=== PATIENT | male | born 1970 | race Caucasian/White ===

== ENCOUNTER → 2016-05-04 | Outpatient (CLI) | payer OTHER ==
[2016-05-04 09:19] LABS: Basophils % (A) 1 %; CH 33.6; CHCM 35.5; Eosinophils # (A) 0.1 k/uL (0-0.7); Eosinophils % (A) 3 %; HCT 44.2 % (39.0-53.0); HDW 2.74; HGB 15.1 gm/dL (13.0-17.5); Luc # (Auto) 0.12; Luc % (Auto) 3; Lymphocytes # (A) 0.8 k/uL (1.0-4.8); Lymphocytes % (A) 21 %; MCH 32.5 pg (25.0-35.0); MCHC 34.2 g/dL (31.0-37.0); Mean Platelet Volume 7.4; Monocytes # (A) 0.4 k/uL (0-1.0); Monocytes % (A) 10 %; Neutrophils # (A) 2.5 k/uL (1.3-7.7); Neutrophils % (A) 62 %; RBC 4.65 m/uL (4.30-5.90); RDW 12.6 % (11.5-15.5); WBC (Perox) 4.32
[2016-05-04 09:24] LABS: ALT 34 U/L (21-72); AST 24 U/L (17-59); Alkaline Phosphatase 62 U/L (38-126); Anion Gap 8 mmol/L; Blood Urea Nitrogen 13 mg/dL (9-20); Calcium 9.2 mg/dL (8.4-10.2); Carbon Dioxide 28 mmol/L (22-30); Chloride 108 mmol/L (98-107); Glucose 100 mg/dL (74-99); Non-African American GFR(MDRD) >60 (>60 ml/min/1.73 sqM); Sodium 144 mmol/L (137-145); Total Bilirubin 0.8 mg/dL (0.2-1.3)
[2016-05-17 16:30] LABS: Mis test requested (Blood) Infliximab Act/NeutA
== END | disposition home or self-care (01) ==
LOC: LABWHC1 08:37
PROVIDERS: ATTEND Internal Medicine
DX: K50.10 Crohn's disease of large intestine without complications (principal); Z51.81 Encounter for therapeutic drug level monitoring
CPT/HCPCS: 36415; 80053; 85025; 86352

== ENCOUNTER → 2016-12-06 | Outpatient (CLI) | payer OTHER ==
--- NOTE | 2016-12-06 15:42 | US ---
EXAMINATION TYPE: US kidneys/renal and bladder DATE OF EXAM: 12/06/2016 COMPARISON: NONE CLINICAL HISTORY: 46-year-old male N13.30 HYDRONEPHROSIS. Stone left ureter, follow up hydronephrosis . TECHNIQUE: Multiple sonographic images of the kidneys and bladder are obtained. FINDINGS: Right Kidney: 11.8 x 5.2 x 5.7 cm without hydronephrosis. There is a 9 mm echogenic focus in the mid pole suggestive of a nonobstructive calculus. Left Kidney: 12.6 x 7.0 x 7.3 cm with moderate hydronephrosis. There is a shadowing 1.2 cm echogenic focus in the lower pole. No gross abnormality of the urine distended bladder. Both ureteral jets are visualized. IMPRESSION: 1. Moderate left-sided hydronephrosis. There is a 1.2 cm calculus at the lower pole. The presence of a left ureteric jet argues against complete ureteral obstruction. 2. Additional 9 mm right midpole renal calculus.
== END ==
LOC: RADUSWWP 15:07
PROVIDERS: ATTEND Family Medicine
DX: N13.2 Hydronephrosis with renal and ureteral calculous obstruction (principal)
CPT/HCPCS: 76770

== ENCOUNTER → 2017-08-19 | Outpatient (CLI) | payer OTHER | END | disposition home or self-care (01) | LOC: LABWHC1 11:33 | PROVIDERS: ATTEND Internal Medicine | DX: K50.10 Crohn's disease of large intestine without complications (principal); Z51.81 Encounter for therapeutic drug level monitoring | CPT/HCPCS: 36415 ==

== ENCOUNTER → 2018-07-18 | Outpatient (CLI) | payer OTHER | LOC: LABWHC1 08:24 | PROVIDERS: ATTEND Internal Medicine | DX: Z51.81 Encounter for therapeutic drug level monitoring (principal); K50.80 Crohn's disease of both small and large intestine without complications | CPT/HCPCS: 36415; 83993 ==

== ENCOUNTER → 2018-11-28 | Outpatient (CLI) | payer BC | END | disposition home or self-care (01) | LOC: LABWHC1 10:14 | PROVIDERS: ATTEND Internal Medicine | DX: K50.80 Crohn's disease of both small and large intestine without complications (principal) | CPT/HCPCS: 36415; 80299 ==

== ENCOUNTER → 2019-05-30 | Outpatient (CLI) | payer BC, OTHER | END | disposition home or self-care (01) | LOC: LABWHC1 09:20 | PROVIDERS: ATTEND Physician Assistant | DX: K50.80 Crohn's disease of both small and large intestine without complications (principal) | CPT/HCPCS: 36415 ==

== ENCOUNTER → 2019-10-30 | Outpatient (CLI) | payer BC ==
[2019-10-30 15:24] LABS: Basophils # (A) 0.1 k/uL (0-0.2); Basophils % (A) 1 %; Eosinophils # (A) 0.2 k/uL (0-0.7); Eosinophils % (A) 3 %; HCT 46.7 % (39.0-53.0); HGB 15.5 gm/dL (13.0-17.5); Lymphocytes # (A) 1.4 k/uL (1.0-4.8); Lymphocytes % (A) 20 %; MCHC 33.1 g/dL (31.0-37.0); MCV 99.5 fL (80.0-100.0); Mean Platelet Volume 7.5; Monocytes # (A) 0.6 k/uL (0-1.0); Monocytes % (A) 9 %; Neutrophils # (A) 4.6 k/uL (1.3-7.7); Neutrophils % (A) 65 %; Platelet Count 186 k/uL (150-450); RBC 4.69 m/uL (4.30-5.90); RDW 13.3 % (11.5-15.5)
[2019-10-30 19:25] LABS: African American GFR (CKD) 90.9 (60.0-200.0); Albumin 4.4 g/dL (3.80-4.90); Albumin/Globulin Ratio 1.69 (1.60-3.17); Anion Gap 7.7 mmol/L (4.00-12.00); BUN/Creat Ratio 14.55 Ratio (12.00-20.00); Calcium 9.4 mg/dL (8.7-10.3); Carbon Dioxide 24.3 mmol/L (21.6-31.8); Globulin 2.6 g/dL (1.6-3.3); Non-African American GFR(CKD) 78.4 (60.0-200.0); Potassium 3.9 mmol/L (3.5-5.5); Total Bilirubin 0.5 mg/dL (0.2-1.2)
== END | disposition home or self-care (01) ==
LOC: LABWHC1 14:12
PROVIDERS: ATTEND Internal Medicine
DX: E55.9 Vitamin D deficiency, unspecified (principal); K50.90 Crohn's disease, unspecified, without complications; Z51.81 Encounter for therapeutic drug level monitoring
CPT/HCPCS: 36415; 80053; 85025

== ENCOUNTER → 2019-12-29 | Outpatient (CLI) | payer BC ==
[2019-12-29 15:43] LABS: Basophils % (A) 1 %; Eosinophils # (A) 0.2 k/uL (0-0.7); Eosinophils % (A) 4 %; HCT 45.4 % (39.0-53.0); HGB 14.9 gm/dL (13.0-17.5); Lymphocytes # (A) 1.3 k/uL (1.0-4.8); Lymphocytes % (A) 24 %; MCH 32.5 pg (25.0-35.0); MCHC 32.9 g/dL (31.0-37.0); Mean Platelet Volume 7.4; Monocytes # (A) 0.5 k/uL (0-1.0); Monocytes % (A) 10 %; Neutrophils # (A) 3.2 k/uL (1.3-7.7); Neutrophils % (A) 59 %; Platelet Count 178 k/uL (150-450); RBC 4.59 m/uL (4.30-5.90); WBC 5.4 k/uL (3.8-10.6)
[2019-12-30 01:54] LABS: African American GFR (CKD) 81.8 (60.0-200.0); Albumin 4.3 g/dL (3.80-4.90); Albumin/Globulin Ratio 1.59 (1.60-3.17); Anion Gap 9.7 mmol/L (4.00-12.00); BUN/Creat Ratio 10.83 Ratio (12.00-20.00); Calcium 9.1 mg/dL (8.7-10.3); Carbon Dioxide 23.3 mmol/L (21.6-31.8); Globulin 2.7 g/dL (1.6-3.3); Non-African American GFR(CKD) 70.6 (60.0-200.0); Total Bilirubin 0.4 mg/dL (0.2-1.2)
== END | disposition home or self-care (01) ==
LOC: LABWHC1 15:03
PROVIDERS: ATTEND Internal Medicine
DX: E55.9 Vitamin D deficiency, unspecified (principal); Z51.81 Encounter for therapeutic drug level monitoring; K50.90 Crohn's disease, unspecified, without complications
CPT/HCPCS: 36415; 80053; 85025

== ENCOUNTER → 2020-10-07 | Outpatient (CLI) | payer BC ==
[2020-10-07 11:40] LABS: Basophils # (A) 0.06 X 10*3/uL (0.00-0.10); Eosinophils # (A) 0.13 X 10*3/uL (0.04-0.35); Eosinophils % (A) 2.3 %; HCT 46.2 % (39.6-50.0); HGB 15.9 g/dL (13.0-17.0); Lymphocytes # (A) 1.25 X 10*3/uL (0.90-5.00); Lymphocytes % (A) 21.7 %; MCH 34.1 pg (27.0-32.0); MCHC 34.4 g/dL (32.0-37.0); MCV 99.1 fL (80.0-97.0); Monocytes # (A) 0.59 X 10*3/uL (0.20-1.00); Monocytes % (A) 10.3 %; Neutrophils # (A) 3.69 X 10*3/uL (1.80-7.70); Neutrophils % (A) 64.2 %; Platelet Count 183 X 10*3/uL (140-440); RBC 4.66 X 10*6/uL (4.40-5.60); WBC 5.75 X 10*3/uL (4.50-10.00)
[2020-10-07 12:41] LABS: ALT 28 U/L (10-49); AST 30 U/L (14-35); African American GFR (CKD) 73.7 (60.0-200.0); Albumin/Globulin Ratio 1.43 (1.60-3.17); Alkaline Phosphatase 71 U/L (41-126); BUN/Creat Ratio 15.38 Ratio (12.00-20.00); C Reactive Protein <0.4 mg/dL (0.0-0.8); Calcium 9.3 mg/dL (8.7-10.3); Chloride 103 mmol/L (96-109); Glucose 173 mg/dL (70-110); Non-African American GFR(CKD) 63.6 (60.0-200.0); Potassium 3.8 mmol/L (3.5-5.5); Sodium 140 mmol/L (135-145); Total Bilirubin 0.8 mg/dL (0.3-1.2); Total Protein 7.3 g/dL (6.2-8.2)
== END | disposition home or self-care (01) ==
LOC: LABWHC1 07:05
PROVIDERS: ATTEND Internal Medicine
DX: Z51.81 Encounter for therapeutic drug level monitoring (principal); K50.818 Crohn's disease of both small and large intestine with other complication
CPT/HCPCS: 36415; 80053; 85025; 86140

== ENCOUNTER → 2020-11-11 | Outpatient (CLI) | payer BC ==
[2020-11-11 22:54] LABS: Basophils # (A) 0.05 X 10*3/uL (0.00-0.10); Basophils % (A) 0.8 %; Eosinophils # (A) 0.15 X 10*3/uL (0.04-0.35); Eosinophils % (A) 2.5 %; HCT 43.1 % (39.6-50.0); HGB 14.8 g/dL (13.0-17.0); Lymphocytes # (A) 1.39 X 10*3/uL (0.90-5.00); Lymphocytes % (A) 23.5 %; MCHC 34.3 g/dL (32.0-37.0); MCV 99.1 fL (80.0-97.0); Mean Platelet Volume 10.9 fL (9.5-12.2); Monocytes # (A) 0.75 X 10*3/uL (0.20-1.00); Monocytes % (A) 12.7 %; Neutrophils # (A) 3.56 X 10*3/uL (1.80-7.70); Neutrophils % (A) 60.3 %; Platelet Count 177 X 10*3/uL (140-440); RBC 4.35 X 10*6/uL (4.40-5.60); RDW 12.4 % (11.5-14.5); WBC 5.91 X 10*3/uL (4.50-10.00)
[2020-11-12 03:33] LABS: Ferritin 118.1 ng/mL (22.0-322.0)
[2020-11-12 03:49] LABS: % Iron Saturation 30.72 (15.00-50.00); ALT 29 U/L (10-49); AST 24 U/L (14-35); African American GFR (CKD) 90.2 (60.0-200.0); Albumin/Globulin Ratio 1.43 (1.60-3.17); Alkaline Phosphatase 73 U/L (41-126); BUN/Creat Ratio 19.09 Ratio (12.00-20.00); C Reactive Protein <0.4 mg/dL (0.0-0.8); Calcium 9.2 mg/dL (8.7-10.3); Carbon Dioxide 25.9 mmol/L (21.6-31.8); Chloride 111 mmol/L (96-109); Glucose 127 mg/dL (70-110); Iron 102 ug/dL (65-175); Non-African American GFR(CKD) 77.9 (60.0-200.0); Potassium 4.1 mmol/L (3.5-5.5); Sodium 146 mmol/L (135-145); Total Bilirubin 0.5 mg/dL (0.3-1.2); Total Iron Binding Capacity 332 ug/dL (228-460); Total Protein 7.3 g/dL (6.2-8.2)
== END | disposition home or self-care (01) ==
LOC: LABWHC1 15:53
PROVIDERS: ATTEND Internal Medicine
DX: K50.818 Crohn's disease of both small and large intestine with other complication (principal)
CPT/HCPCS: 36415; 80053; 82306; 82607; 82728; 83540; 83550; 85025; 86140

== ENCOUNTER → 2021-04-19 | Outpatient (CLI) | payer BC ==
[2021-04-19 18:04] LABS: Basophils # (A) 0.06 X 10*3/uL (0.00-0.10); Basophils % (A) 0.8 %; Eosinophils # (A) 0.19 X 10*3/uL (0.04-0.35); Eosinophils % (A) 2.6 %; HCT 44.1 % (39.6-50.0); HGB 14.9 g/dL (13.0-17.0); Lymphocytes # (A) 1.54 X 10*3/uL (0.90-5.00); Lymphocytes % (A) 20.8 %; MCH 33.9 pg (27.0-32.0); MCHC 33.8 g/dL (32.0-37.0); MCV 100.2 fL (80.0-97.0); Monocytes # (A) 0.75 X 10*3/uL (0.20-1.00); Monocytes % (A) 10.1 %; Neutrophils # (A) 4.82 X 10*3/uL (1.80-7.70); Platelet Count 244 X 10*3/uL (140-440); RDW 12.6 % (11.5-14.5); WBC 7.41 X 10*3/uL (4.50-10.00)
[2021-04-19 19:58] LABS: Erythrocyte Sedimentation Rate 12 mm/Hr (0-20)
[2021-04-19 20:23] LABS: ALT 41 U/L (10-49); AST 33 U/L (14-35); African American GFR (CKD) 94.8 (60.0-200.0); Albumin 4.6 g/dL (3.8-4.9); Albumin/Globulin Ratio 1.57 (1.60-3.17); Alkaline Phosphatase 76 U/L (41-126); Amylase 64 U/L (23-121); BUN/Creat Ratio 13.05 Ratio (12.00-20.00); Blood Urea Nitrogen 13.7 mg/dL (9.0-27.0); Calcium 9.5 mg/dL (8.7-10.3); Carbon Dioxide 24.4 mmol/L (20.0-27.5); Chloride 103 mmol/L (96-109); Globulin 2.9 g/dL (1.6-3.3); Glucose 145 mg/dL (70-110); Lipase 50 U/L (14-60); Non-African American GFR(CKD) 81.8 (60.0-200.0); Potassium 3.8 mmol/L (3.5-5.5); Sodium 141 mmol/L (135-145); Total Protein 7.5 g/dL (6.2-8.2)
[2021-04-19 21:08] LABS: C Reactive Protein <0.30 mg/dL (0.00-0.80)
== END | disposition home or self-care (01) ==
LOC: LABWHC1 14:45
PROVIDERS: ATTEND Physician Assistant
DX: K50.818 Crohn's disease of both small and large intestine with other complication (principal)
CPT/HCPCS: 36415; 80053; 82150; 83690; 85025; 85652; 86140

== ENCOUNTER → 2021-08-25 | Outpatient (CLI) | payer BC ==
[2021-08-25 19:16] LABS: Basophils # (A) 0.05 X 10*3/uL (0.00-0.10); Basophils % (A) 0.6 %; Eosinophils # (A) 0.19 X 10*3/uL (0.04-0.35); Eosinophils % (A) 2.4 %; HCT 44.2 % (39.6-50.0); HGB 15.2 g/dL (13.0-17.0); Immature Grans, Automated 0.4 %; Lymphocytes # (A) 1.25 X 10*3/uL (0.90-5.00); Lymphocytes % (A) 15.8 %; MCH 33.9 pg (27.0-32.0); MCHC 34.4 g/dL (32.0-37.0); MCV 98.4 fL (80.0-97.0); Mean Platelet Volume 10.4 fL (9.5-12.2); Monocytes # (A) 0.82 X 10*3/uL (0.20-1.00); Monocytes % (A) 10.4 %; NRBC Per 100 WBC 0 /100 WBCS (0.0-0.0); Neutrophils # (A) 5.58 X 10*3/uL (1.80-7.70); Neutrophils % (A) 70.4 %; Platelet Count 218 X 10*3/uL (140-440); RBC 4.49 X 10*6/uL (4.40-5.60); RDW 12.6 % (11.5-14.5); WBC 7.92 X 10*3/uL (4.50-10.00)
[2021-08-25 19:23] LABS: African American GFR (CKD) 93.7 (60.0-200.0); Albumin 4.3 g/dL (3.8-4.9); Albumin/Globulin Ratio 1.41 (1.60-3.17); Anion Gap 12.5 mmol/L (10.00-18.00); BUN/Creat Ratio 15.47 Ratio (12.00-20.00); Blood Urea Nitrogen 16.4 mg/dL (9.0-27.0); Calcium 9.5 mg/dL (8.7-10.3); Carbon Dioxide 25.7 mmol/L (20.0-27.5); Globulin 3.1 g/dL (1.6-3.3); Non-African American GFR(CKD) 80.9 (60.0-200.0); Potassium 3.2 mmol/L (3.5-5.5); Total Bilirubin 0.7 mg/dL (0.30-1.20); Total Protein 7.4 g/dL (6.2-8.2)
== END | disposition home or self-care (01) ==
LOC: LABWHC1 12:37
PROVIDERS: ATTEND Physician Assistant
DX: Z51.81 Encounter for therapeutic drug level monitoring (principal); K50.818 Crohn's disease of both small and large intestine with other complication
CPT/HCPCS: 36415; 80053; 85025

== ENCOUNTER → 2022-01-09 | Outpatient (CLI) | payer BC ==
[2022-01-09 15:38] LABS: Basophils # (A) 0.04 X 10*3/uL (0.00-0.10); Basophils % (A) 0.7 %; Eosinophils # (A) 0.14 X 10*3/uL (0.04-0.35); Eosinophils % (A) 2.6 %; HCT 44.8 % (39.6-50.0); HGB 15.5 g/dL (13.0-17.0); Immature Grans, Automated 0.5 %; Lymphocytes # (A) 1.18 X 10*3/uL (0.90-5.00); Lymphocytes % (A) 21.5 %; MCHC 34.6 g/dL (32.0-37.0); MCV 98.2 fL (80.0-97.0); Mean Platelet Volume 10.5 fL (9.5-12.2); Monocytes # (A) 0.59 X 10*3/uL (0.20-1.00); Monocytes % (A) 10.7 %; NRBC Per 100 WBC 0 /100 WBCS (0.0-0.0); Neutrophils # (A) 3.51 X 10*3/uL (1.80-7.70); Platelet Count 162 X 10*3/uL (140-440); RBC 4.56 X 10*6/uL (4.40-5.60); WBC 5.49 X 10*3/uL (4.50-10.00)
[2022-01-09 16:22] LABS: African American GFR (CKD) 98.2 (60.0-200.0); Albumin 4.5 g/dL (3.8-4.9); Albumin/Globulin Ratio 1.56 (1.60-3.17); Anion Gap 7.8 mmol/L (10.00-18.00); BUN/Creat Ratio 11.76 Ratio (12.00-20.00); Calcium 9.6 mg/dL (8.7-10.3); Carbon Dioxide 28.6 mmol/L (20.0-27.5); Globulin 2.9 g/dL (1.6-3.3); Non-African American GFR(CKD) 84.7 (60.0-200.0); Potassium 4.7 mmol/L (3.5-5.5); Total Bilirubin 0.9 mg/dL (0.30-1.20); Total Protein 7.4 g/dL (6.2-8.2)
== END | disposition home or self-care (01) ==
LOC: LABWHC1 08:15
PROVIDERS: ATTEND General Practice
DX: Z51.81 Encounter for therapeutic drug level monitoring (principal); K50.818 Crohn's disease of both small and large intestine with other complication
CPT/HCPCS: 36415; 80053; 85025

== ENCOUNTER → 2023-01-24 | Outpatient (CLI) | payer BC ==
--- NOTE | 2023-01-24 12:32 | US ---
EXAMINATION TYPE: US abdomen limited DATE OF EXAM: 01/24/2023 COMPARISON: NONE CLINICAL INDICATION: Male, 52 years old with history of K50.818 CROHN'S DISEASE; abn liver labs, know n Crohn's disease, no pain TECHNIQUE: Multiple sonographic images of the right upper quadrant are obtained. 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 This sec ondarily limits assessment for focal lesions. Gallbladder: Borderline distended. No wall thickening, surrounding fluid, or shadowing calculi. Evidence for sonographic Andrade's sign: no CBD: wnl Right Kidney: wnl IMPRESSION: 1. Mild hepatomegaly (18.5 cm) with severe hepatic steatosis. Appropriate clinical management advised . 2. No gallstones. 3. Borderline to mildly dilated bile duct at 7.4 mm may be chronic for the patient. Correlate with al kaline phosphatase and bilirubin levels.
== END | disposition home or self-care (01) ==
LOC: RADUSWWP 06:51
PROVIDERS: ATTEND Internal Medicine
DX: K50.818 Crohn's disease of both small and large intestine with other complication (principal); K76.0 Fatty (change of) liver, not elsewhere classified; R16.0 Hepatomegaly, not elsewhere classified
CPT/HCPCS: 76705

== ENCOUNTER → 2023-11-25 | Outpatient (CLI) | payer BC ==
--- NOTE | 2023-12-17 12:49 | US ---
Site ID [facility] Patient Mounika Oconnell J ID [id number] Age/Gender: 53Y, M Order # [id number] Procedure US scrotum with doppler Date 11/25/2023 7:17:00 AM Reason R10.32 LEFT LOWER QUADRANT PAIN EXAMINATION TYPE: US scrotum with doppler. Grayscale and color Doppler Duplex imaging performed of t he scrotum. DATE OF EXAM: 12/13/2023 COMPARISON: CT abdomen and pelvis 07/18/2018 CLINICAL INDICATION: Male, 53 years old with history of R10.32 LEFT LOWER QUADRANT PAIN; EXAM MEASUREMENTS: Delay in interpretation due to institutional cyber attack. TESTICLES: Right Testicle: 4.2 x 2.1 x 3.6 cm Left Testicle: 4.0 x 2.7 x 2.1 cm EPIDIDYMIS HEAD: Right Epididymis: 0.9 x 0.9 x 0.8 cm Left Epididymis: 0.6 x 0.7 x 0.6 cm Doppler performed to assess for testicular vascularity; good bilateral color flow and waveforms are s een. There is no evidence of testicular torsion. Presence of hydroceles: No Presence of varicoceles: No Thin-walled unilocular cystic structure measuring 6.6 x 3.9 x 5.1 cm with internal debris adjacent to the left testicle no internal color flow. Incidental tubular ectasia of the left testicular rete acosta acosta. IMPRESSION: 1. No evidence of testicular torsion. 2. Unilocular 6.6 cm cystic structure adjacent to the left testicle favored to represent a spermatoce le.
--- NOTE | 2023-12-17 12:49 | US ---
Site ID [facility] Patient Mounika Oconnell J ID [id number] Age/Gender: 53Y, M Order # [id number] Procedure US groin LT Date 11/25/2023 7:33:52 AM Reason R10.32 LEFT LOWER QUADRANT PAIN INDICATION: Patient age:Male; 53 years old; Reason for study: R10.32 LEFT LOWER QUADRANT PAIN; [facility]. COMPARISON: CT abdomen pelvis 07/18/2018. TECHNIQUE: Multiple grayscale and color Doppler ultrasound images of the left groin were obtained. De layed interpretation due to institutional cyber attack. FINDINGS/IMPRESSION: Left groin scan without ultrasound evidence of abnormality. No lymphadenopathy identified. No organiz ed fluid collections.
== END | disposition home or self-care (01) ==
LOC: RADUSWWP 06:56
PROVIDERS: ATTEND Nurse Practitioner
DX: R10.32 Left lower quadrant pain (principal); N52.9 Male erectile dysfunction, unspecified; N43.40 Spermatocele of epididymis, unspecified
CPT/HCPCS: 76870; 93975

== ENCOUNTER → 2024-01-17 | Outpatient (CLI) | payer BC ==
--- NOTE | 2024-01-19 11:45 | US ---
EXAMINATION TYPE: US thyroid st tissue head/neck DATE OF EXAM: 01/17/2024 COMPARISON: NONE CLINICAL INDICATION: Male, 53 years old with history of R79.89 ABNORMAL FINDINGS OF BLOOD CHEMISTRY; abn lab, no symptoms GLAND SIZE: Right Lobe: 4.1 x 1.4 x 2.5 cm Overall Parenchyma: homogeneous Left Lobe: 4.4 x 1.5 x 2.1 cm Overall Parenchyma: homogeneous Isthmus Thickness: 0.4 cm NODULES RIGHT: # of nodules measured on right: 1 1. 1.3 X 1.2 x 1.3 cm, lower, solid or almost completely solid, hypoechoic nodule, which is wider t hansen tall, with smooth margins, without echogenic foci. Prior size: LEFT: # of nodules measured on left: 0 ISTHMUS: # of nodules measured in the isthmus: 0 Bilateral neck scanned, no evidence of lymphadenopathy. IMPRESSION: Moderately Suspicious: FNA if ? 1.5 cm; Follow if ? 1 cm at 1, 2, 3, and 5 y 2017 ACR TI-RADS LEVEL: TR4 *Highest TI-RADS level nodule reported [facility], , 01/19/2024 11:43 AM
== END | disposition home or self-care (01) ==
LOC: RADUSWWP 14:37
PROVIDERS: ATTEND Internal Medicine
DX: R79.89 Other specified abnormal findings of blood chemistry
CPT/HCPCS: 76536

== ENCOUNTER 2024-02-10 08:53 | Day surgery (SDC) | payer BC ==
--- NOTE | 2024-02-10 11:43 | US ---
EXAMINATION TYPE: US FNA first lesion DATE OF EXAM: 02/10/2024 11:23 AM CLINICAL INDICATION:Male, 53 years old with history of E04.1 thyroid nodule; , COMPARISON: 01/17/2024 ATTENDING: Dr. Johnathan Harry PROCEDURE: Informed consent was obtained. The risks and benefits of the procedure were discussed with the patien t. The site was marked. Timeout procedure was performed Ultrasound imaging demonstrates right thyroid nodule The patient was prepped, draped in the usual sterile fashion, and locally anesthetized with 1% lidoca ine. Five fine needle aspiration were then performed with a 25 gauge needle. Samples were sent to [facility] pathology department for further analysis. Patient tolerated the procedure without incident and wa s sent home in stable condition. IMPRESSION: Successful ultrasound guided fine needle aspiration [facility], , 02/10/2024 11:41 AM
[2024-02-10 16:51] VITALS: RESP 18; TEMP 98.1
[2024-02-10 16:52] VITALS: BP 114/68; PULSE 76
== END 2024-02-10 11:00 | disposition home or self-care (01) ==
LOC: RADPROMAIN 08:53
PROVIDERS: ATTEND Internal Medicine
DX: E04.1 Nontoxic single thyroid nodule (principal)
CPT/HCPCS: 10005; 88173; 88305

== ENCOUNTER → 2024-08-22 | Outpatient (CLI) | payer BC ==
[2024-08-22 13:33] LABS: Basophils # (A) 0.02 X 10*3/uL (0.00-0.10); Basophils % (A) 0.6 %; Eosinophils # (A) 0.03 X 10*3/uL (0.04-0.35); Eosinophils % (A) 0.9 %; HCT 44.5 % (39.6-50.0); HGB 15.6 g/dL (13.0-17.0); Lymphocytes % (A) 25.1 %; MCH 33.4 pg (27.0-32.0); MCHC 35.1 g/dL (32.0-37.0); MCV 95.3 FL (80.0-97.0); Mean Platelet Volume 10.5 FL (9.5-12.2); Monocytes # (A) 0.75 X 10*3/uL (0.20-1.00); Monocytes % (A) 23.5 %; NRBC Per 100 WBC 0 X 10*3/uL (0.00-0.01); Neutrophils # (A) 1.58 X 10*3/uL (1.80-7.70); Neutrophils % (A) 49.6 %; Platelet Count 146 X 10*3/uL (140-440); RBC 4.67 X 10*6/uL (4.40-5.60); RDW 12.6 % (11.5-14.5); WBC 3.19 X 10*3/uL (4.50-10.00)
[2024-08-22 14:01] LABS: ALT 118 U/L (10-49); AST 93 U/L (14-35); Albumin 4.2 g/dL (3.8-4.9); Albumin/Globulin Ratio 1.45 Ratio (1.60-3.17); Alkaline Phosphatase 71 U/L (41-126); BUN/Creat Ratio 12.78 Ratio (12.00-20.00); Blood Urea Nitrogen 11.5 mg/dL (9.0-27.0); Calcium 8.9 mg/dL (8.7-10.3); Chloride 101 mmol/L (96-109); Globulin 2.9 g/dL (1.6-3.3); Glucose 209 mg/dL (70-110); Potassium 3.7 mmol/L (3.5-5.5); Sodium 136 mmol/L (135-145); Total Bilirubin 0.8 mg/dL (0.3-1.2); Total Protein 7.1 g/dL (6.2-8.2)
== END | disposition home or self-care (01) ==
LOC: LABWHC1 08:05
PROVIDERS: ATTEND Family Medicine
DX: R71.8 Other abnormality of red blood cells (principal); I10 Essential (primary) hypertension; R79.89 Other specified abnormal findings of blood chemistry; E11.65 Type 2 diabetes mellitus with hyperglycemia
CPT/HCPCS: 36415; 80053; 83036; 84443; 85025

== ENCOUNTER → 2024-10-17 | Outpatient (CLI) | payer BC | END | disposition home or self-care (01) | LOC: LABWHC1 07:31 | PROVIDERS: ATTEND Physician Assistant | DX: K50.818 Crohn's disease of both small and large intestine with other complication (principal) | CPT/HCPCS: 36415; 83993 ==